=== PATIENT | male | born 1955 | race Caucasian/White ===

== ENCOUNTER 2020-05-03 06:32 | Day surgery (SDC) | payer OTHER ==
[~2020-05-03 06:32] MED LIST: Dextrose 5%-0.45% NaCl 1,000 ML IV SCH; Midazolam 1 MG/ML 2 ML SDV ONE; Sodium Chloride 0.9% 10 ML Syringe FLUSH PRN; fentaNYL 100 MCG/2 ML SDV ONE
[2020-05-03] MEDS ORDERED: fentaNYL 100 MCG/2 ML SDV IV ONE ×3 (06:33→07:50)
[2020-05-03] MEDS ORDERED: Midazolam 1 MG/ML 2 ML SDV IV ONE ×6 (06:33→07:59)
[2020-05-03 09:58] VITALS: BP 132/62; PULSE 79
--- NOTE | 2020-05-03 10:20 | OR ---
DATE: 05/03/2020 PROCEDURE: Total colonoscopy, narrow-band imaging, and cold snare polypectomy. INSTRUMENT USED: [id number] Olympus video colonoscope. PREMEDICATIONS: Fentanyl 100 mcg intravenous, Versed 4 mg intravenous, nasal O2 cannula. The procedure was done under pulse oximetry, BP recording, and patient monitor. INDICATION: Screening colonoscopic examination is done for detection of any polypoid lesions and removal, endoscopic hemostasis therapy if needed. DESCRIPTION OF PROCEDURE: Initial rectal exam was unremarkable. Rigid anoscopy was normal. The colonoscope was passed with ease. Numerous scattered diverticula were noted in the distal colon along with deformity. The scope was passed with ease up to the ileocecal area. Photographs were taken of the normal- appearing cecum identified by landmarks of appendiceal orifice and double-bulged ileocecal folds. No bleeding was noted from any of the visualized areas at the commencement of the examination. There was considerable amount of fecal material that had to be aspirated. Bowel preparation scale 2 in all regions, total score 6. No stricture. No vascular ectasia. No large isolated ulcerations seen. No evidence of diffuse inflammatory bowel disease in the form of friability, contact bleeding, or ulcerations. No polyp or tumor mass identified. Probing the proximal sides of folds and flexures using adequate distention and clearing up the stool material, withdrawal of the scope was made. In the proximal ascending colon, 5 mm sized benign-appearing polyp was noted, NBI views were obtained, photographs were taken, cold snare polypectomy was done, the tissue was retrieved, and sent for histopathology. No bleeding was noted from any of the visualized areas at the completion of examination. In the proximal ascending colon, around 1 cm sized superficial sessile polyp was noted, NBI views were obtained, photographs were taken, cold snare polypectomy was done, the tissue was retrieved and sent for histopathology. No bleeding was noted from any of the visualized areas at the completion of examination. IMPRESSION: 1. Diverticulosis. 2. Ascending colon polyp. The patient tolerated the procedure well. [facility] /[id number] MTDD
--- NOTE | 2020-05-03 10:46 | LETTER ---
05/03/2020 [facility] [address] [place] [address] RE: MAYCOL LIU : 1955 Dear Ms. Salas: Mr. Maycol Liu had colonoscopic examination this morning and he tolerated the procedure well. I herewith send a copy of the endoscopy note and photographs for your review. Thank you. Sincerely, [facility] /[id number]
== END 2020-05-03 10:05 | disposition home or self-care (01) ==
LOC: DL.ENDO 06:32
PROVIDERS: ATTEND Internal Medicine Gastroenterology
DX: Z12.11 Encounter for screening for malignant neoplasm of colon (principal); D12.2 Benign neoplasm of ascending colon; K57.30 Diverticulosis of large intestine without perforation or abscess without bleeding; J44.9 Chronic obstructive pulmonary disease, unspecified; E11.9 Type 2 diabetes mellitus without complications; I10 Essential (primary) hypertension; F41.1 Generalized anxiety disorder; F17.210 Nicotine dependence, cigarettes, uncomplicated; E66.01 Morbid (severe) obesity due to excess calories; Z90.49 Acquired absence of other specified parts of digestive tract; Z88.5 Allergy status to narcotic agent; Z88.8 Allergy status to other drugs, medicaments and biological substances; Z98.890 Other specified postprocedural states; Z68.41 Body mass index [BMI] 40.0-44.9, adult
CPT/HCPCS: J2250; J3010; J7042

== ENCOUNTER 2023-12-03 03:52 | Inpatient (IN) | payer OTHER ==
[2023-12-03 04:09] LABS: HEMATOCRIT 45.3 % (40.0-54.0); HEMOGLOBIN 14.9 g/dL (14.0-18.0); MEAN CORPUSCULAR HEMOGLOBIN 31.3 pg (27.0-34.0); MEAN CORPUSCULAR HGB CONC 32.9 g/dL (33.0-35.0); MEAN CORPUSCULAR VOLUME 95.2 fL (80-100); PLATELET COUNT,PLT 290 10^3/uL (150-450); RED BLOOD CELL COUNT 4.76 10^6/uL (4.6-6.2); WHITE BLOOD CELL COUNT,WBC 13.6 10^3/uL (5.0-10.0)
[2023-12-03] MEDS: Nitroglycerin 0.4 MG Tab.SL SL ONE (04:14)
[2023-12-03 04:15] LABS: BASOPHILS PERCENT AUTO 0.2 % (0.0-1.0); EOSINOPHILS PERCENT AUTO 1.2 % (1.0-3.0); LYMPHOCYTES PERCENT AUTO 17.2 % (20.5-50.1); MONOCYTES PERCENT AUTO 7.7 % (2-8); NEUTROPHILS PERCENT AUTO 73.7 % (42.2-75.2)
[2023-12-03 04:26] LABS: A/G RATIO 0.68; ALBUMIN 3.2 g/dL (3.4-5.0); ANION GAP 7.5 mEq/L (7-13); BILIRUBIN TOTAL 0.4 mg/dL (0.2-1.0); BUN/CREATININE RATIO 19.4 (No establ ref range); CALCIUM 8.9 mg/dL (8.5-10.1); CREATININE 1.24 mg/dL (0.70-1.30); EST CRCL DRUG DOSING (CG) 58.87 mL/min; POTASSIUM,K 4.5 mmol/L (3.5-5.1); PROTEIN TOTAL,TP 7.9 g/dL (6.4-8.2)
[2023-12-03] MEDS: Sodium Chloride 0.9% 10 ML Syringe FLUSH PRN (04:27)
[2023-12-03 04:32] LABS: EOSINOPHILS PERCENT MAN 1 % (1-3); LYMPHOCYTES PERCENT MAN 18 % (20-50); MONOCYTES PERCENT MAN 9 % (2-8); SEG NEUTROPHILS PERCENT MAN 72 % (42-75)
[2023-12-03] MEDS: Albuterol/Ipratropium 3.0-0.5 MG/3 ML Neb Soln NEB ONE (04:39)
[2023-12-03 04:58] LABS: CORONAVIRUS COVID-19 NAA NEGATIVE (NEGATIVE); INFLUENZA A NAA NEGATIVE (NEGATIVE); INFLUENZA B NAA NEGATIVE (NEGATIVE); RESPIRATORY SYNCYTIAL VIR NAA NEGATIVE (NEGATIVE)
[2023-12-03] MEDS: Sodium Chloride 0.9% 1,000 ML IV ONE ×2 (05:20→10:58)
[2023-12-03] MEDS: Iopamidol 755 Mg/ML 100 ML Bottle IVPUSH ONE (05:23)
[2023-12-03 06:17] LABS: APPEARANCE,URINE CLEAR (CLEAR); BILIRUBIN,URINE NEGATIVE (NEGATIVE); COLOR,URINE YELLOW (YELLOW); GLUCOSE,URINE 500 (NEGATIVE); KETONES,URINE NEGATIVE (NEGATIVE); LEUKOCYTE ESTERASE,URINE NEGATIVE (NEGATIVE); NITRITE,URINE NEGATIVE (NEGATIVE); OCCULT BLOOD,URINE NEGATIVE (NEGATIVE); PROTEIN,URINE NEGATIVE (NEGATIVE); UROBILINOGEN,URINE 0.2 mg/dL (0.2-1.0)
[2023-12-03] MEDS: fentaNYL 100 MCG/2 ML SDV IVPUSH ONE ×2 (06:28→06:56)
[2023-12-03] MEDS: cefTRIAXone 1 GM Vial IVPUSH ONE (06:49)
[2023-12-03] MEDS: Azithromycin 500 MG in Sodium Chloride 0.9% 250 ML IV ONE (07:00)
[2023-12-03] MEDS ORDERED: Polyethylene Glycol 3350 Powder 17 GM Packet PO PRN (09:06)
[2023-12-03] MEDS ORDERED: Naloxone 2 MG/2 ML Syringe IVPUSH PRN (09:06)
[2023-12-03] MEDS ORDERED: Ondansetron 4 MG/2 ML SDV IVPUSH PRN (09:06)
[2023-12-03] MEDS ORDERED: Morphine 2 MG/ML SYRINGE IVPUSH PRN (09:06)
[2023-12-03] MEDS ORDERED: Sennosides/Docusate Sodium 50-8.6 MG Tab PO PRN (09:06)
[2023-12-03] MEDS ORDERED: guaiFENesin/Dextromethorphan 100-10 MG/5 ML Soln 5 ML Cup PO PRN (09:12)
[2023-12-03] MEDS ORDERED: hydrALAZINE 20 MG/ML SDV IVPUSH PRN ×2 (09:12→17:42)
[2023-12-03] MEDS ORDERED: Metoprolol Tartrate 5 MG/5 ML SDV IVPUSH PRN ×2 (09:12→17:42)
[2023-12-03] MEDS: HYDROmorphone 0.5 MG/0.5 ML Syringe IVPUSH PRN ×2 (09:54→11:39)
[2023-12-03] MEDS ORDERED: fentaNYL 100 MCG/2 ML SDV IVPUSH PRN (11:02)
[2023-12-03] MEDS: Albuterol/Ipratropium 3.0-0.5 MG/3 ML Neb Soln NEB PRN (14:33)
[2023-12-03] MEDS: Pantoprazole 40 MG Tab.CR PO SCH (16:49)
[2023-12-03] MEDS: GI Cocktail Oral Solution 30 ML PO PRN (17:36)
[2023-12-03] MEDS: Ketorolac 30 MG/ML SDV IVPUSH ONE (17:36)
[2023-12-03] MEDS ORDERED: Glucagon,Human Recombinant 1 MG Vial IM PRN (17:42)
[2023-12-03] MEDS ORDERED: 50% Dextrose in Water 50 ML Syringe IVPUSH PRN (17:42)
[2023-12-03] MEDS: Formoterol/Mometasone 200-5 MCG 8.8 GM Inhaler IH SCH (18:22)
[2023-12-03] MEDS ORDERED: Budesonide 0.5 MG/2 ML Neb Susp INH SCH (21:00)
[2023-12-03] MEDS ORDERED: guaiFENesin 600 MG Tab.ER PO SCH (21:00)
[2023-12-03] MEDS: Gabapentin 300 MG Cap PO SCH (21:28)
[2023-12-03] MEDS: guaiFENesin 600 MG Tab.ER PO SCH (21:29)
[2023-12-03] MEDS: Saccharomyces Boulardii (Probiotic) 250 MG Cap PO SCH (21:29)
[2023-12-03] MEDS: Lisinopril 20 MG Tab PO SCH (21:29)
[2023-12-03] MEDS: oxyCODONE ER 10 MG TAB.ER PO SCH (21:29)
[2023-12-03] MEDS: Dexamethasone 4 MG Tab PO SCH (21:30)
[2023-12-04] MEDS: Nitroglycerin 2% Oint 1 GM UD Packet TOP PRN (00:27)
[2023-12-04] MEDS: Ketorolac 30 MG/ML SDV IVPUSH ONE (00:27)
[2023-12-04] MEDS: Ketorolac 30 MG/ML SDV ONE (05:27)
[2023-12-04] MEDS: Tiotropium Bromide 4 GM Inhalation Spray (2.5mcg/1 dose; 10 doses) INH SCH (06:39)
[2023-12-04] MEDS: Arformoterol 15 MCG/2 ML Neb Soln INH SCH (06:40)
[2023-12-04 06:44] LABS: BASOPHILS PERCENT AUTO 0.1 % (0.0-1.0); EOSINOPHILS PERCENT AUTO 0.1 % (1.0-3.0); HEMATOCRIT 42.8 % (40.0-54.0); HEMOGLOBIN 13.9 g/dL (14.0-18.0); LYMPHOCYTES PERCENT AUTO 5.3 % (20.5-50.1); MEAN CORPUSCULAR HEMOGLOBIN 31.4 pg (27.0-34.0); MEAN CORPUSCULAR HGB CONC 32.5 g/dL (33.0-35.0); MEAN CORPUSCULAR VOLUME 96.8 fL (80-100); MONOCYTES PERCENT AUTO 7.4 % (2-8); NEUTROPHILS PERCENT AUTO 87.1 % (42.2-75.2); PLATELET COUNT,PLT 258 10^3/uL (150-450); RED BLOOD CELL COUNT 4.42 10^6/uL (4.6-6.2)
[2023-12-04 06:59] LABS: ALBUMIN 2.9 g/dL (3.4-5.0); BILIRUBIN TOTAL 0.8 mg/dL (0.2-1.0); BUN/CREATININE RATIO 18.7 (No establ ref range); C-REACTIVE PROTEIN 17.82 ng/dL (<=0.50); CALCIUM 8.5 mg/dL (8.5-10.1); CREATININE 1.34 mg/dL (0.70-1.30); EST CRCL DRUG DOSING (CG) 54.48 mL/min; MAGNESIUM 2.1 mg/dL (1.8-2.4); POTASSIUM,K 4.6 mmol/L (3.5-5.1); PROTEIN TOTAL,TP 7.6 g/dL (6.4-8.2)
[2023-12-04 07:04] LABS: ANION GAP 13.6 mEq/L (7-13)
[2023-12-04 07:23] LABS: A/G RATIO 0.62
[2023-12-04 07:48] LABS: HEMOGLOBIN A1C 6.2 % (<5.7)
[2023-12-04] MEDS: Insulin Lispro 100 Units/ML 3 ML Vial SUBCUT SCH (08:41)
[2023-12-04] MEDS: Glimepiride 2 MG Tab PO SCH (08:45)
[2023-12-04] MEDS: amLODIPine 5 MG Tab PO SCH (08:46)
[2023-12-04] MEDS: Cholecalciferol (Vitamin D3) 25 MCG Tab PO SCH (08:46)
[2023-12-04] MEDS: atorvaSTATin 10 MG Tab PO SCH (08:47)
[2023-12-04] MEDS: Furosemide 40 MG Tab PO SCH (08:47)
[2023-12-04] MEDS: Empagliflozin 25 MG Tab PO SCH (08:47)
[2023-12-04] MEDS: cefTRIAXone 2 GM Vial IVPUSH SCH (08:51)
[2023-12-04] MEDS: Azithromycin 500 MG in Sodium Chloride 0.9% 250 ML IV SCH (08:58)
[2023-12-04] MEDS: Magnesium Hydroxide 400 MG/5 ML Susp 30 ML Cup PO PRN (09:52)
[2023-12-04] MEDS: Acetaminophen 325 MG Tab PO PRN (22:58)
[2023-12-05 06:39] LABS: HEMATOCRIT 39.4 % (40.0-54.0); HEMOGLOBIN 13.1 g/dL (14.0-18.0); MEAN CORPUSCULAR HEMOGLOBIN 31.5 pg (27.0-34.0); MEAN CORPUSCULAR HGB CONC 33.2 g/dL (33.0-35.0); MEAN CORPUSCULAR VOLUME 94.7 fL (80-100); PLATELET COUNT,PLT 258 10^3/uL (150-450); RED BLOOD CELL COUNT 4.16 10^6/uL (4.6-6.2); WHITE BLOOD CELL COUNT,WBC 21.7 10^3/uL (5.0-10.0)
[2023-12-05 06:42] LABS: BASOPHILS PERCENT AUTO 0.1 % (0.0-1.0); LYMPHOCYTES PERCENT AUTO 3.8 % (20.5-50.1); MONOCYTES PERCENT AUTO 5.7 % (2-8); NEUTROPHILS PERCENT AUTO 90.4 % (42.2-75.2)
[2023-12-05 06:48] LABS: ALBUMIN 2.6 g/dL (3.4-5.0); ANION GAP 15.7 mEq/L (7-13); BILIRUBIN TOTAL 0.4 mg/dL (0.2-1.0); C-REACTIVE PROTEIN 18.2 ng/dL (<=0.50); CALCIUM 8.4 mg/dL (8.5-10.1); CREATININE 1.05 mg/dL (0.70-1.30); EST CRCL DRUG DOSING (CG) 69.52 mL/min; MAGNESIUM 2.3 mg/dL (1.8-2.4); POTASSIUM,K 4.7 mmol/L (3.5-5.1); PROTEIN TOTAL,TP 7.3 g/dL (6.4-8.2)
[2023-12-05 06:50] LABS: A/G RATIO 0.55
[2023-12-05 07:10] LABS: LYMPHOCYTES PERCENT MAN 3 % (20-50); MONOCYTES PERCENT MAN 6 % (2-8); SEG NEUTROPHILS PERCENT MAN 91 % (42-75)
[2023-12-06 06:44] LABS: HEMATOCRIT 40.5 % (40.0-54.0); HEMOGLOBIN 13.8 g/dL (14.0-18.0); MEAN CORPUSCULAR HGB CONC 34.1 g/dL (33.0-35.0); PLATELET COUNT,PLT 280 10^3/uL (150-450); RED BLOOD CELL COUNT 4.31 10^6/uL (4.6-6.2); WHITE BLOOD CELL COUNT,WBC 18.2 10^3/uL (5.0-10.0)
[2023-12-06 07:08] LABS: LYMPHOCYTES PERCENT AUTO 5.4 % (20.5-50.1); NEUTROPHILS PERCENT AUTO 87.2 % (42.2-75.2)
[2023-12-06 07:09] LABS: BASOPHILS PERCENT AUTO 0.1 % (0.0-1.0); MONOCYTES PERCENT AUTO 7.3 % (2-8)
[2023-12-06 07:12] LABS: ALBUMIN 2.6 g/dL (3.4-5.0); ANION GAP 13.6 mEq/L (7-13); BILIRUBIN TOTAL 0.3 mg/dL (0.2-1.0); BUN/CREATININE RATIO 22.7 (No establ ref range); C-REACTIVE PROTEIN 12.24 ng/dL (<=0.50); CALCIUM 8.7 mg/dL (8.5-10.1); CREATININE 1.1 mg/dL (0.70-1.30); EST CRCL DRUG DOSING (CG) 66.36 mL/min; MAGNESIUM 2.3 mg/dL (1.8-2.4); POTASSIUM,K 4.6 mmol/L (3.5-5.1); PROTEIN TOTAL,TP 7.4 g/dL (6.4-8.2)
[2023-12-06 07:16] LABS: A/G RATIO 0.54
[2023-12-06 08:13] LABS: LYMPHOCYTES PERCENT MAN 4 % (20-50); MONOCYTES PERCENT MAN 7 % (2-8); SEG NEUTROPHILS PERCENT MAN 89 % (42-75)
[2023-12-06 13:28] VITALS: BP 137/51; PULSE 75
== END 2023-12-06 12:45 | disposition home or self-care (01) | DRG 193 ==
LOC: DL.ED 03:52 → DL.MS 07:35
PROVIDERS: ADMIT Internal Medicine; ATTEND Internal Medicine
DX: J18.9 Pneumonia, unspecified organism (principal); J96.91 Respiratory failure, unspecified with hypoxia; E66.2 Morbid (severe) obesity with alveolar hypoventilation; E87.1 Hypo-osmolality and hyponatremia; E66.9 Obesity, unspecified; E11.9 Type 2 diabetes mellitus without complications; J44.0 Chronic obstructive pulmonary disease with (acute) lower respiratory infection; Z79.84 Long term (current) use of oral hypoglycemic drugs; Z68.41 Body mass index [BMI] 40.0-44.9, adult; J44.1 Chronic obstructive pulmonary disease with (acute) exacerbation; I10 Essential (primary) hypertension; F32.A Depression, unspecified; E78.00 Pure hypercholesterolemia, unspecified; R79.1 Abnormal coagulation profile; B18.2 Chronic viral hepatitis C; F17.210 Nicotine dependence, cigarettes, uncomplicated; K44.9 Diaphragmatic hernia without obstruction or gangrene; D14.31 Benign neoplasm of right bronchus and lung; K80.20 Calculus of gallbladder without cholecystitis without obstruction; E11.65 Type 2 diabetes mellitus with hyperglycemia; E88.09 Other disorders of plasma-protein metabolism, not elsewhere classified; Z91.148 Patient's other noncompliance with medication regimen for other reason; Z90.49 Acquired absence of other specified parts of digestive tract; Z79.4 Long term (current) use of insulin; Z88.5 Allergy status to narcotic agent; Z88.8 Allergy status to other drugs, medicaments and biological substances; Z87.19 Personal history of other diseases of the digestive system; Z79.52 Long term (current) use of systemic steroids; Z79.899 Other long term (current) drug therapy; Z79.2 Long term (current) use of antibiotics; Z94.5 Skin transplant status
CPT/HCPCS: 0241U; 36415; 71045; 71046; 71275; 80053; 80061; 81003; 82947; 83036; 83605; 83735; 83880; 84484; 85025; 85379; 86140; 87040; 87070; 87205; 93005; 93010; 94640; 94664; 96361; 96365; 96375; 99223; 99232; 99233; 99238; 99284; 99285-25; A9270-GY; J0456; J0696; J1170; J1815-GY; J1885; J3010; J3490; J7030; J7050; J7620-GY; J8540; Q9967